=== PATIENT | female | born 1965 | race American Indian/Alaskan Native ===

== ENCOUNTER 2017-10-01 18:17 | Emergency (ER) | payer OTHER ==
[2017-10-01 19:48] LABS: BASO # 0.1 K/uL (0.0-0.2); BASO % 0.9 % (0.0-2.0); EOS # 0.2 K/uL (0.0-0.7); EOS % 1.6 % (0.0-4.0); HEMOGLOBIN 12.5 g/dL (12.0-16.0); LYMPH # 3.6 K/uL (1.0-4.3); LYMPH % 38.1 % (20.0-40.0); MEAN CORPUSCULAR HGB CONC 32.6 g/dL (33.0-37.0); MEAN PLATELET VOLUME 10.4 fl (7.2-11.7); MONO # 0.7 K/uL (0.0-0.8); MONO % 7.7 % (0.0-10.0); NEUT # 4.8 K/uL (1.8-7.0); NEUT % 51.7 % (50.0-75.0); NRBC % 0.1 % (0.0-0.0); RBC 4.3 Mil/uL (3.80-5.20); RED CELL DISTRIBUTION WIDTH 14.8 % (11.5-14.5); WHITE BLOOD COUNT 9.4 K/uL (4.8-10.8)
--- NOTE | 2017-10-01 19:48 | ED PDOC ---
Lower Extremity Pain/Injury Time Seen by Provider: 10/01/17 18:49 Chief Complaint (Nursing): Lower Extremity Problem/Injury Chief Complaint (Provider): Left lower extremity pain / left rib pain History Per: Patient History/Exam Limitations: no limitations Onset/Duration Of Symptoms: Days (x1) Current Symptoms Are (Timing): Still Present Additional Complaint(s): 52 year old female presents to the emergency department complaining of left rib pain since yesterday and left thigh ecchymosis since this morning. Patient reports the chest pain is worse when taking deep breathes, but denies any other chest pain or shortness or breath. As for the left thigh, patient notes there is no associated swelling or pain. Otherwise, she denies any other complaints at this time. PMD: none provided Past Medical History Reviewed: Historical Data, Nursing Documentation, Vital Signs Vital Signs: Last Vital Signs Temp 98.2 F 10/01/17 18:46 Pulse 84 10/01/17 18:46 Resp 18 10/01/17 18:46 BP 182/90 H 10/01/17 18:46 Pulse Ox 99 10/01/17 18:46 - Medical History PMH: Arthritis (osteoarthritis (left hip)), Asthma, Fractures (L ankle), HTN, Hypercholesterolemia Denies: HIV, Chronic Kidney Disease Other PMH: obesity - Surgical History Surgical History: Hernia Repair (ventral) - Family History Family History: States: Unknown Family Hx - Social History Current smoker - smoking cessation education provided: No Alcohol: None Drugs: Denies - Immunization History Hx Tetanus Toxoid Vaccination: No Hx Influenza Vaccination: No Hx Pneumococcal Vaccination: No - Home Medications Home Medications: Ambulatory Orders Medication Instructions Recorded Atorvastatin [Lipitor] 40 mg PO DAILY 07/10/15 Vitamin D 2,000 iu PO DAILY 07/10/15 Losartan/Hydrochlorothiazide 1 tab PO DAILY 10/22/15 [Hyzaar 12.5 mg-50 mg] Meloxicam [Mobic] 15 mg PO DAILY 10/22/15 Ibuprofen [Motrin] 600 mg PO Q6 #20 tab 08/09/16 Lidocaine 1 each TP Q12 #12 adh..patch 08/09/16 oxyCODONE/Acetaminophen [Percocet 1 ea PO Q6 PRN #5 tab 08/09/16 5/325 mg Tab] - Allergies Allergies/Adverse Reactions: Allergies Allergy/AdvReac Type Severity Reaction Status Date / Time levofloxacin Allergy RASH Verified 10/22/15 08:56 Review of Systems ROS Statement: Except As Marked, All Systems Reviewed And Found Negative Cardiovascular: Positive for: Chest Pain (left rib pain, worse with deep breathing) Respiratory: Negative for: Shortness of Breath Musculoskeletal: Positive for: Other (left thigh ecchymosis, no swelling, no pain) Physical Exam - Reviewed Nursing Documentation Reviewed: Yes Vital Signs Reviewed: Yes - Physical Exam Appears: Positive for: No Acute Distress (obese) Head Exam: Positive for: ATRAUMATIC, NORMOCEPHALIC Skin: Positive for: Normal Color, Warm, Dry. Negative for: Rash Eye Exam: Positive for: Normal appearance ENT: Positive for: Normal ENT Inspection Neck: Positive for: Normal, Painless ROM, Supple Cardiovascular/Chest: Positive for: Regular Rate, Rhythm. Negative for: Chest Non Tender (tenderness to left chest wall), Murmur Respiratory: Positive for: Normal Breath Sounds. Negative for: Accessory Muscle Use, Respiratory Distress Gastrointestinal/Abdominal: Positive for: Normal Exam, Soft. Negative for: Tenderness Back: Positive for: Normal Inspection. Negative for: L CVA Tenderness, R CVA Tenderness Extremity: Positive for: Other (left anterior thigh 5cm circular ecchymosis). Negative for: Tenderness, Calf Tenderness, Swelling Neurologic/Psych: Positive for: Alert, Oriented (x3). Negative for: Motor/ Sensory Deficits - Laboratory Results Result Diagrams: 10/01/17 19:35 10/01/17 19:35 - ECG O2 Sat by Pulse Oximetry: 99 (RA) Pulse Ox Interpretation: Normal - Radiology X-Ray: Interpreted by Me, Viewed By Me X-Ray Interpretation: No Acute Disease - Progress Re-evaluation Time: 21:36 Condition: Re-examined, Improved Medical Decision Making Medical Decision Making: Initial Impression: right rib pain, ecchymosis of left thigh Ddx: r/o DVT Time: 19:23 Initial Plan: --EKG --BMP --Trop I --CBC with differential --D Dimer --Chest XR --US Left LE 20:53 US Left LE FINDINGS: Deep veins: Unremarkable. No DVT in the visualized common femoral, femoral, proximal deep femoral or popliteal veins. The veins demonstrate normal color flow, are normally compressible, with normal phasic flow and/or augmentation response. Superficial veins: Unremarkable. No thrombus in the visualized great saphenous vein. Soft tissues: Complex appearing collection is noted in the lateral aspect of the proximal thigh measuring 3.9 x 0.9 x 2.6 cm. IMPRESSION: Complex appearing collection is noted in the lateral aspect of the proximal thigh measuring 3.9 x 0.9 x 2.6 cm. No evidence of acute deep venous thrombosis in left lower extremity. Scribe Attestation: Documented by Cecilia Rucker, acting as a scribe for Kamilla Crane MD. Provider Scribe Attestation: All medical entries made by the Scribe were at my direction and personally dictated by me. I have reviewed the chart and agree that the record accurately reflects my personal performance of the history, physical exam, medical decision making, and the department course for this patient. I have also personally directed, reviewed, and agree with the discharge instructions and disposition. Disposition - Clinical Impression Clinical Impression: Superficial bruising of thigh, Rib pain on left side - Patient ED Disposition Is Patient to be Admitted: No Doctor Will See Patient In The: Office Counseled Patient/Family Regarding: Studies Performed, Diagnosis, Need For Followup - Disposition Referrals: [facility] [Outside] Disposition: Routine/Home Disposition Time: 21:36 Condition: GOOD Additional Instructions: Follow up with your PCP in 2-3 days. Instructions: Pleuritic Chest Pain (DC), Varicose Veins and Other Vein Disease in the Legs
[2017-10-01 19:54] LABS: MEAN CELL VOLUME 89.1 fl (81.0-99.0)
[2017-10-01 20:01] LABS: CALCIUM 9.7 mg/dL (8.4-10.2); GFR AFRICAN-AMERICAN > 60; GFR NON-AFRICAN AMERICAN > 60
[2017-10-01 20:02] LABS: BLOOD UREA NITROGEN 13 mg/dl (7-17)
[2017-10-01 22:38] VITALS: BP 160/92; PULSE 88; RESP 16; TEMP 97.8; O2SAT 100
--- NOTE | 2017-10-02 08:25 | RAD ---
HISTORY: left rib pain COMPARISON: Chest radiograph 02/07/2011 FINDINGS: LUNGS: No active pulmonary disease. PLEURA: No significant pleural effusion identified, no pneumothorax apparent. CARDIOVASCULAR: Normal. OSSEOUS STRUCTURES: Unchanged. VISUALIZED UPPER ABDOMEN: Normal. OTHER FINDINGS: None. IMPRESSION: No active disease.
--- NOTE | 2017-10-02 08:40 | US ---
PROCEDURE: Left lower extremity venous duplex Doppler. HISTORY: left tigh echimosis COMPARISON: None available. TECHNIQUE: Common femoral, superficial femoral, popliteal and posterior tibial veins were evaluated. Flow was assessed with color Doppler, compressibility, assessment of phasic flow and augmentation response. FINDINGS: COMMON FEMORAL VEIN: Unremarkable. SUPERFICIAL FEMORAL VEIN: Unremarkable. POPLITEAL VEIN: Unremarkable. POSTERIOR TIBIAL VEIN: Unremarkable. OTHER FINDINGS: In the mid lateral left thigh soft tissues, there is a small complex fluid collection measuring 3.9 x 0.9 x 2.6 cm. IMPRESSION: No evidence of deep venous thrombosis in the left lower extremity. 3.9 x 0.9 x 2.6 cm complex fluid collection in the mid lateral thigh soft tissues.
--- NOTE | 2017-10-04 11:43 | CARD ---
APPROVED REPORT EKG Measurement Heart [id number] <Conclusion> Normal sinus rhythm Incomplete right bundle branch block Nonspecific T wave abnormality Abnormal ECG
== END 2017-10-01 22:25 | disposition home or self-care (01) ==
LOC: H.ER 18:17
DX: R07.81 Pleurodynia (principal); S70.12XA Contusion of left thigh, initial encounter; E66.9 Obesity, unspecified; E78.00 Pure hypercholesterolemia, unspecified; I10 Essential (primary) hypertension; J45.909 Unspecified asthma, uncomplicated